=== PATIENT | female | born 1965 | race Caucasian/White ===

== ENCOUNTER 2018-11-05 18:18 | Inpatient (IN) | payer OTHER ==
[~2018-11-05] VITALS: Ht 165.1 cm; Wt 138.0 kg
[2018-11-05] VITALS (8 sets, daily range): BP systolic 94–145; BP diastolic 35–82
--- NOTE | ~2018-11-05 | EKG ---
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
--- NOTE | ~2018-11-05 | EKG ---
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
--- NOTE | ~2018-11-05 | EKG ---
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
--- NOTE | ~2018-11-05 | EEG ---
[place], [place] ELECTROENCEPHALOGRAM REPORT [id number] UNIT #: [id number] ROOM: 427 DOCTOR: JAN KLEIN MD DOS: 11/06/2018 LEXISCAN CARDIOLITE STUDY REPORT HISTORY OF PRESENT ILLNESS: Regadenoson was infused over a period of 10 seconds, 40 seconds later technetium 99 sestamibi was injected intravenously. She tolerated this well, had no chest pain or breathing difficulty. Maximum heart rate was 82 beats per minute, blood pressure 118/72. Resting ECG demonstrated normal sinus rhythm in a normal pattern and following Lexiscan infusion. No abnormalities were identified and there were no dysrhythmias. CONCLUSION 1. The patient tolerated regadenoson infusion satisfactorily. 2. No clinical or electrocardiographic evidence of ischemia. 3. Nuclear report will be provided separately. JAN KLEIN MD CM:EEG:ELECTROENCEPHALOGRAM REPORT 1259 1354 JAN KLEIN MD
--- NOTE | ~2018-11-05 | ECHO ---
[place], [place] ADULT ECHOCARDIOGRAPHY REPORT NAME EVELYN ARREAGA [facility] #: [id number] UNIT #: [id number] ROOM: 427 DOCTOR: JAN KLEIN MD BIRTHDATE: [birth year] DOS: 11/06/2018 LEXISCAN CARDIOLITE STUDY REPORT REASON FOR STUDY: Acute chest pain. HISTORY OF PRESENT ILLNESS: Regadenoson was infused over a period of 10 seconds; 40 seconds later, technetium 99 sestamibi was injected intravenously, she tolerated this well. Resting heart rate was 69 beats per minute, post-infusion rate was 82; blood pressure 180/72. Resting ECG demonstrated normal sinus rhythm in a normal pattern. No changes were seen following infusion of Lexiscan. CONCLUSION: 1. She tolerated regadenoson infusion satisfactorily. 2. No clinical or electrocardiographic evidence of ischemia. 3. Nuclear report will be provided separately. JAN KLEIN MD CM:ECHO:ADULT ECHOCARDIOGRAPHY REPORT 0705 0713 JAN KLEIN MD
--- NOTE | ~2018-11-05 | CON ---
[place], [place] REPORT OF CONSULTATION 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 She has morbid obesity, longstanding type 2 diabetes mellitus, essential hypertension, hyperlipidemia, hypothyroidism and also major depression, anxiety. She has had hysterectomy in the remote past. She has never had a heart attack, heart failure, rhythm disorder of the heart, stroke, COPD or kidney problems. She was admitted to the hospital to the Emergency Department because of left anterior chest pressure, heaviness and accompanied with some shortness of breath while walking at work. She had this feeling in the scapular area as well. This feeling is subsided when she calmed down and it had actually happened the day before yesterday as well. She has not had any previous exertional chest pain. No PND, orthopnea, or swelling of the lower extremities. SOCIAL HISTORY: She has smoked in the remote past. She does not use alcoholic beverage. FAMILY HISTORY: Strongly positive for coronary artery disease. HOME MEDICATIONS: Lexapro 10 daily, levothyroxine 50 mcg daily, lisinopril 20 daily, metformin 1 g b.i.d., metoprolol tartrate 50 b.i.d., omega-3 and insulin/Lantus SoloSTAR. PHYSICAL EXAMINATION: GENERAL: This revealed the patient who is moderately obese, very pleasant and alert. She is not cyanotic, not jaundiced. She is mildly tachypneic. There is no thyromegaly or finger clubbing. VITAL SIGNS: Pulse is irregular and 72, blood pressure 112/63. NECK: Normal JVP, no bruit in the neck. HEART: There is no cardiomegaly, no murmurs are present. EXTREMITIES: She has large legs, but no pitting edema. Pedal pulses were a little difficult to appreciate. LUNGS: Clear to percussion and auscultation with excellent breath sounds. DIAGNOSTIC STUDIES: ECG showed normal sinus and a normal pattern. Troponin I level was also normal. IMPRESSION AND PLAN: This patient with multiple risk factors for coronary artery disease, had 2 episodes of chest pain that are of some concern. She has ruled out for acute myocardial infarction. A Lexiscan Cardiolite study is scheduled and will be performed. I thank you for this consult. [place], [place] REPORT OF CONSULTATION NAME: EVELYN ARREAGA UNIT #: [id number] ROOM: [facility] DOCTOR: JAN KLEIN MD BIRTHDATE: [birth year] JAN KLEIN MD CM:CONSTR:REPORT OF CONSULTATION 0709 11/07/18 0128 interface
--- NOTE | ~2018-11-05 | ST ---
[place], [place] EXERCISE STRESS TEST REPORT [facility]: [id number] UNIT #: [id number] ROOM: 427 DOCTOR: JAN KLEIN MD BIRTHDATE: [birth year] DOS: 11/06/2018 LEXISCAN CARDIOLITE STUDY REPORT HISTORY OF PRESENT ILLNESS: Regadenoson was infused over a period of 10 seconds, 40 seconds later technetium 99 sestamibi was injected intravenously. She tolerated this well, had no chest pain or breathing difficulty. Maximum heart rate was 82 beats per minute, blood pressure 118/72. Resting ECG demonstrated normal sinus rhythm in a normal pattern and following Lexiscan infusion. No abnormalities were identified and there were no dysrhythmias. CONCLUSION 1. The patient tolerated regadenoson infusion satisfactorily. 2. No clinical or electrocardiographic evidence of ischemia. 3. Nuclear report will be provided separately. JAN KLEIN MD CM:STRESS:EXERCISE STRESS TEST REPORT 1259 1354 JAN KLEIN MD
[2018-11-05 18:32] LABS: BASO % 0.4 % (0.0-1.0); EOS # 1.1 10*3/uL (0.0-0.4); EOS % 13.9 % (1.0-4.0); HEMOGLOBIN 14.3 g/dl (12.0-16.0); LYMPH # 2.6 10*3/uL (1.3-4.4); LYMPH % 33.1 % (27.0-41.0); MEAN CELL VOLUME 85.2 fl (81.0-99.0); MEAN PLATELET VOLUME 11.1 fl (9.6-12.3); MONO # 0.5 10*3/uL (0.1-1.0); NEUT # 3.5 10*3/uL (2.3-7.9); NEUT % 45.5 % (47.0-73.0); PLATELET COUNT AUTOMATED 204 10*3/uL (130-400); RED BLOOD COUNT 4.93 10*6/uL (4.10-5.10); RED CELL DISTRI WIDTH 13.2 % (0-14.5); WHITE BLOOD COUNT 7.8 10*3/uL (4.8-10.8)
[2018-11-05 18:51] LABS: ALBUMIN 3.1 gm/dl (3.1-4.5); ALKALINE PHOSPHATASE 109 U/L (45-117); BUN 14 mg/dl (7-24); CHLORIDE 105 mmol/L (98-107); CREATININE 0.88 mg/dL (0.55-1.02); POTASSIUM 4.2 mmol/L (3.5-5.1); SGOT/AST 12 IU/L (3-35); SGPT/ALT 25 U/L (12-78); SODIUM 138 mmol/L (136-145)
[2018-11-05 18:53] LABS: TROPONIN I < 0.015 ng/ml (<0.045)
[2018-11-05 19:05] LABS: ACT PARTIAL THROMBO TIME 23.1 SECONDS (20.8-31.5); INTERNATIONAL NORM RATIO 0.9 (2.0-3.5)
[2018-11-05] MEDS ORDERED: CEPHALEXIN500 M1 PO (19:05)
[2018-11-06] VITALS: BP 112/63
[2018-11-06] MEDS ORDERED: LEXAPRO10 MG PO (01:29)
[2018-11-06] MEDS ORDERED: LOPRESSOR50 M1 PO (01:30)
[2018-11-06] MEDS ORDERED: GLUCOPHAGE1000 MG PO (01:30)
[2018-11-06] MEDS ORDERED: ZESTRIL20 MG PO (01:30)
[2018-11-06] MEDS ORDERED: FISH OIL CONC1000 M1 PO (01:31)
[2018-11-06] MEDS ORDERED: LANTUS SOL100 UNIT/1 SQ (01:31)
[2018-11-06] MEDS ORDERED: LEVOTHYROXINE50 MCG PO (01:31)
[2018-11-06 08:00] VITALS: BP 130/58
[2018-11-06 08:24] LABS: BASO % 0.2 % (0.0-1.0); EOS # 1.1 10*3/uL (0.0-0.4); EOS % 13.3 % (1.0-4.0); HEMATOCRIT 42.2 % (37.0-47.0); HEMOGLOBIN 14.3 g/dl (12.0-16.0); LYMPH # 2.1 10*3/uL (1.3-4.4); MEAN CELL VOLUME 85.4 fl (81.0-99.0); MEAN CORPUSCULAR HGB 28.9 pg (27.0-31.0); MEAN CORPUSCULAR HGB CONC 33.9 g/dl (33.0-37.0); MEAN PLATELET VOLUME 10.6 fl (9.6-12.3); MONO # 0.5 10*3/uL (0.1-1.0); MONO % 6.4 % (3.0-9.0); NEUT # 4.3 10*3/uL (2.3-7.9); NEUT % 53.9 % (47.0-73.0); PLATELET COUNT AUTOMATED 204 10*3/uL (130-400); RED BLOOD COUNT 4.94 10*6/uL (4.10-5.10); RED CELL DISTRI WIDTH 13.2 % (0-14.5); WHITE BLOOD COUNT 8.1 10*3/uL (4.8-10.8)
[2018-11-06 08:58] LABS: ALBUMIN 3.2 gm/dl (3.1-4.5); BUN 13 mg/dl (7-24); CHLORIDE 111 mmol/L (98-107); CHOLESTEROL 172 mg/dL (<200); CREATININE 0.72 mg/dL (0.55-1.02); PHOSPHOROUS 3.5 mg/dL (2.5-4.9); SGOT/AST 19 IU/L (3-35); SGPT/ALT 27 U/L (12-78); SODIUM 141 mmol/L (136-145); TOTAL PROTEIN 7.1 gm/dL (6.4-8.2); TRIGLYCERIDES 234 mg/dl (<150); VLDL CHOLESTEROL 47 mg/dL (6-40)
[2018-11-06 09:00] LABS: ACT PARTIAL THROMBO TIME 22.8 SECONDS (20.8-31.5); INTERNATIONAL NORM RATIO 0.9 (2.0-3.5)
[2018-11-06 09:05] LABS: ALKALINE PHOSPHATASE 98 U/L (45-117); HDL CHOLESTEROL 41 mg/dl (40-60); LDL CHOLESTEROL 84 mg/dL (9-159)
[2018-11-06 09:51] LABS: VITAMIN D, 25-HYDROXY 17.3 ng/mL (30-100)
[2018-11-06 12:00] VITALS: BP 133/64
[2018-11-06 16:00] VITALS: BP 136/69
[2018-11-06 20:00] VITALS: BP 131/57
[2018-11-07] VITALS: BP 106/53
[2018-11-07 07:58] VITALS: BP 138/60
[2018-11-07 11:30] VITALS: BP 108/54
[2018-11-07] MEDS ORDERED: VITAMIN D32000 UNI1 PO (15:44)
== END 2018-11-07 16:36 | disposition home or self-care (01) | DRG 206 ==
LOC: ED 18:18 → EDHOLD 19:41 → 4E 19:41 → EDHOLD 19:47 → 4E 20:48
PROVIDERS: Emergency Medicine; Family Medicine; ADMIT Internal Medicine
PROC: 4A02XM4 Measurement of Cardiac Total Activity, External Approach (ICD-10-PCS; principal; 2018-11-06)
PROC: 3E073KZ Introduction of Other Diagnostic Substance into Coronary Artery, Percutaneous Approach (ICD-10-PCS; 2018-11-06)
DX: M94.0 Chondrocostal junction syndrome [Tietze] (principal); E44.0 Moderate protein-calorie malnutrition; Z68.42 Body mass index [BMI] 45.0-49.9, adult; K21.9 Gastro-esophageal reflux disease without esophagitis; E11.65 Type 2 diabetes mellitus with hyperglycemia; E66.01 Morbid (severe) obesity due to excess calories; I25.9 Chronic ischemic heart disease, unspecified; F32.9 Major depressive disorder, single episode, unspecified; I10 Essential (primary) hypertension; F41.1 Generalized anxiety disorder; E03.9 Hypothyroidism, unspecified; E55.9 Vitamin D deficiency, unspecified; E87.8 Other disorders of electrolyte and fluid balance, not elsewhere classified; Z79.4 Long term (current) use of insulin; Z90.710 Acquired absence of both cervix and uterus

== ENCOUNTER 2019-10-12 15:21 | Emergency (ER) | payer OTHER ==
[~2019-10-12] VITALS: Ht 162.5 cm; Wt 145.1 kg
[~2019-10-12 15:21] MED LIST: CEPHALEXIN500 M1 PO; FISH OIL CONC1000 M1 PO; GLUCOPHAGE1000 MG PO; LANTUS SOL100 UNIT/1 SQ; LEVOTHYROXINE50 MCG PO; LEXAPRO10 MG PO; LOPRESSOR50 M1 PO; VITAMIN D32000 UNI1 PO; ZESTRIL20 MG PO
[2019-10-12] MEDS ORDERED: MEDROL DOSEPAK4 MG PO (18:51)
== END 2019-10-12 18:55 | disposition home or self-care (01) ==
LOC: ED 15:21
DX: M25.512 Pain in left shoulder (principal); F32.9 Major depressive disorder, single episode, unspecified; F41.9 Anxiety disorder, unspecified; Z79.4 Long term (current) use of insulin; Z79.84 Long term (current) use of oral hypoglycemic drugs; Z79.899 Other long term (current) drug therapy; Z90.710 Acquired absence of both cervix and uterus; Z87.891 Personal history of nicotine dependence; Z86.73 Personal history of transient ischemic attack (TIA), and cerebral infarction without residual deficits; X50.0XXA Overexertion from strenuous movement or load, initial encounter; Y93.89 Activity, other specified; Y92.89 Other specified places as the place of occurrence of the external cause; Y99.8 Other external cause status

== ENCOUNTER → 2021-06-22 | Outpatient (CLI) | payer SELFPAY ==
[~2021-06-22] MED LIST changes: +MEDROL DOSEPAK4 MG PO
== END | disposition home or self-care (01) ==
LOC: RESCLI 10:36
PROVIDERS: ATTEND Internal Medicine
DX: E03.9 Hypothyroidism, unspecified (principal); I10 Essential (primary) hypertension; F41.1 Generalized anxiety disorder; E11.69 Type 2 diabetes mellitus with other specified complication; E66.9 Obesity, unspecified; F32.9 Major depressive disorder, single episode, unspecified; E78.2 Mixed hyperlipidemia; C55 Malignant neoplasm of uterus, part unspecified; Z87.891 Personal history of nicotine dependence; Z90.710 Acquired absence of both cervix and uterus; Z79.84 Long term (current) use of oral hypoglycemic drugs; Z79.82 Long term (current) use of aspirin; Z79.899 Other long term (current) drug therapy

== ENCOUNTER → 2022-03-23 | Outpatient (CLI) | payer SELFPAY | END | disposition home or self-care (01) | LOC: RESCLI 00:12 | PROVIDERS: ATTEND Student in an Organized Health Care Education/Training Program | DX: E11.69 Type 2 diabetes mellitus with other specified complication (principal); E03.9 Hypothyroidism, unspecified; E78.2 Mixed hyperlipidemia; F32.9 Major depressive disorder, single episode, unspecified; I10 Essential (primary) hypertension; F41.1 Generalized anxiety disorder; Z79.899 Other long term (current) drug therapy; Z79.82 Long term (current) use of aspirin ==

== ENCOUNTER 2022-03-26 20:56 | Emergency (ER) | payer SELFPAY ==
[~2022-03-26] VITALS: Ht 167.6 cm; Wt 135.2 kg
[2022-03-26 21:22] LABS: BASO % 0.3 % (0.0-1.0); EOS # 0.2 10*3/uL (0.0-0.4); EOS % 2.7 % (1.0-4.0); HEMATOCRIT 43.2 % (37.0-47.0); LYMPH # 0.6 10*3/uL (1.3-4.4); LYMPH % 7.6 % (27.0-41.0); MEAN CELL VOLUME 85.4 fl (81.0-99.0); MEAN CORPUSCULAR HGB 28.3 pg (27.0-31.0); MEAN CORPUSCULAR HGB CONC 33.1 g/dl (33.0-37.0); MEAN PLATELET VOLUME 10.2 fl (9.6-12.3); MONO # 0.7 10*3/uL (0.1-1.0); MONO % 8.6 % (3.0-9.0); NEUT # 6.2 10*3/uL (2.3-7.9); NEUT % 80.5 % (47.0-73.0); PLATELET COUNT AUTOMATED 211 10*3/uL (130-400); RED BLOOD COUNT 5.06 10*6/uL (4.10-5.10); RED CELL DISTRI WIDTH 13.8 % (0-14.5); WHITE BLOOD COUNT 7.7 10*3/uL (4.8-10.8)
[2022-03-26 21:39] LABS: ALKALINE PHOSPHATASE 98 U/L (45-117); BUN 12 mg/dl (7-24); CHLORIDE 103 mmol/L (98-107); POTASSIUM 4.1 mmol/L (3.5-5.1); SGOT/AST 45 IU/L (3-35); SGPT/ALT 56 U/L (12-78); SODIUM 135 mmol/L (136-145)
== END 2022-03-26 21:59 | disposition home or self-care (01) ==
LOC: ED 20:56
PROVIDERS: Internal Medicine
DX: U07.1 COVID-19 (principal); R79.82 Elevated C-reactive protein (CRP); Z87.891 Personal history of nicotine dependence; Z90.710 Acquired absence of both cervix and uterus; Z98.890 Other specified postprocedural states; Z79.899 Other long term (current) drug therapy; Z79.4 Long term (current) use of insulin

== ENCOUNTER → 2023-04-23 | Outpatient (CLI) | payer SELFPAY | END | disposition home or self-care (01) | LOC: LAB 11:47 | PROVIDERS: ATTEND Internal Medicine | DX: N39.0 Urinary tract infection, site not specified (principal) ==

== ENCOUNTER → 2024-05-18 | Outpatient (CLI) | payer SELFPAY | END | disposition home or self-care (01) | LOC: RESCLI 13:27 | PROVIDERS: ATTEND Internal Medicine | DX: E11.69 Type 2 diabetes mellitus with other specified complication (principal); E03.9 Hypothyroidism, unspecified; E78.2 Mixed hyperlipidemia; F41.1 Generalized anxiety disorder; E55.9 Vitamin D deficiency, unspecified; F32.9 Major depressive disorder, single episode, unspecified; Z98.890 Other specified postprocedural states; Z87.891 Personal history of nicotine dependence; Z79.84 Long term (current) use of oral hypoglycemic drugs; Z79.82 Long term (current) use of aspirin; Z79.899 Other long term (current) drug therapy ==